=== PATIENT | female | born 1980 | race Caucasian/White ===

== ENCOUNTER 2025-05-29 00:10 | Emergency (ER) | payer OTHER, SELFPAY ==
[2025-05-29 00:12] VITALS: BP 130/90
[2025-05-29 00:28] VITALS: BP 134/100
[2025-05-29 00:38] VITALS: BP 114/85
--- NOTE | 2025-05-29 00:41 | ED.GENMED ---
History of Present Illness
<Idania Aguirre MD - Last Filed: 05/29/25 01:43>
General
Chief Complaint: Numbness
Time Seen by Provider: 05/29/25 00:24
History of Present Illness
History of Present Illness:
Patient is a 44-year-old woman with history of breast cancer currently on tamoxifen presenting to the emergency department with right sided numbness tingling to the face down to her leg. Patient's last known normal was 11 PM. Patient states that
she has sudden onset burning sensation to the entire right side. Her right arm then felt heavy. She felt slightly confused. She states that the heaviness is now gone and now just has paresthesias to the entire right side. She does note that last
week she did have bilateral blurry vision. This has not happened again. No history of strokes. No personal or family history of MS. Patient states she was on the phone with her sister when this happened. Do not have any word finding
difficulties. No dysarthria. 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 The only complaint was the paresthesias to the entire right side. However the heaviness did resolve by the time he evaluated her
Phy Exam
<Idania Aguirre MD - Last Filed: 05/29/25 01:43>
Physical Exam
Physical Exam:
GENERAL: in no acute distress
HEENT: normocephalic, extraocular movements intact, moist oral mucosa
NECK: normal inspection
RESPIRATORY: no respiratory distress, clear to auscultation bilaterally
CARDIOVASCULAR: regular rate and rhythm
ABDOMEN/: soft, non-distended, non-tender to palpation, no rebound or guarding
EXTREMITIES: non-tender, no edema/swelling
NEUROLOGIC: NIH 0, alert and oriented x 3, cranial nerves II-XII intact, right upper extremity strength 5/5, left upper extremity strength 5/5, right lower extremity strength 5/5, left lower extremity strength 5/5, normal sensation to light touch,
normal [id number] and vlmh-hj-hnea, gait not tested formally
SKIN: warm
Course
<Idania Aguirre MD - Last Filed: 05/29/25 01:43>
Orders/Labs/Results
Orders:
Orders
05/29/25 00:38
CT Head & Neck Angio W/wo IV Urgent
Reason For Exam: right sided parathesias, CTA + CTV
05/29/25 00:42
Complete Blood Count/With Diff Urgent
05/29/25 00:44
Electrocardiogram (*1) Urgent
Reason for Study: TIA/Stroke
EKG- Treatment ONCE
05/29/25 01:06
Comprehensive Metabolic Panel Urgent
Comment: REDRAW
Abnormal Lab Results
05/29/25 05/29/25
00:42 01:06
Abs Immat Gran (auto) 0.1 H 10^3/uL
(0-0.05)
Absolute Lymphs (auto) 3.7 H 10^3/uL
(1.2-3.4)
Absolute Monos (auto) 0.9 H 10^3/uL
(0.1-0.6)
BUN 18 H mg/dl
(7-17)
Glucose 108 H mg/dl
(70-99)
05/29/25 00:42
05/29/25 01:06
Vital Signs
Initial and Last Documented VS:
Initial Vital Signs
Temp Pulse Resp BP Pulse Ox
98 F 92 20 130/90 98
05/29/25 00:12 05/29/25 00:12 05/29/25 00:12 05/29/25 00:12 05/29/25 00:12
Last Documented Vital Signs
Temp Pulse Resp BP Pulse Ox
98 F 80 18 123/91 98
05/29/25 00:12 05/29/25 03:00 05/29/25 03:00 05/29/25 03:00 05/29/25 03:00
<Sharon Buitrago, DO - Last Filed: 05/29/25 03:36>
Orders/Labs/Results
Orders:
Orders
05/29/25 00:38
CT Head & Neck Angio W/wo IV Urgent
Reason For Exam: right sided parathesias, CTA + CTV
05/29/25 00:42
Complete Blood Count/With Diff Urgent
05/29/25 00:44
Electrocardiogram (*1) Urgent
Reason for Study: TIA/Stroke
EKG- Treatment ONCE
05/29/25 01:06
Comprehensive Metabolic Panel Urgent
Comment: REDRAW
Abnormal Lab Results
05/29/25 05/29/25
00:42 01:06
Abs Immat Gran (auto) 0.1 H 10^3/uL
(0-0.05)
Absolute Lymphs (auto) 3.7 H 10^3/uL
(1.2-3.4)
Absolute Monos (auto) 0.9 H 10^3/uL
(0.1-0.6)
BUN 18 H mg/dl
(7-17)
Glucose 108 H mg/dl
(70-99)
05/29/25 00:42
05/29/25 01:06
Vital Signs
Initial and Last Documented VS:
Initial Vital Signs
Temp Pulse Resp BP Pulse Ox
98 F 92 20 130/90 98
05/29/25 00:12 05/29/25 00:12 05/29/25 00:12 05/29/25 00:12 05/29/25 00:12
Last Documented Vital Signs
Temp Pulse Resp BP Pulse Ox
98 F 80 18 123/91 98
05/29/25 00:12 05/29/25 03:00 05/29/25 03:00 05/29/25 03:00 05/29/25 03:00
<Idania Aguirre MD - Last Filed: 05/29/25 01:43>
MDM/Problems Addressed
Differential Diagnosis Includes:
Patient is a 44-year-old woman with history of breast cancer presenting to the emergency department with right sided paresthesias as well as heaviness that has now resolved. Patient did have intermittent blurry vision last week. Differential is
broad but consists of TIA given the heaviness versus cerebral venous thrombosis versus malignancy. Will check blood work EKG and CT scans.
<Idania Aguirre MD - Last Filed: 05/29/25 01:43>
*Pulse Oximetry
SaO2: 99
Oxygen Mode of Delivery: Room air
<Sharon Buitrago DO - Last Filed: 05/29/25 03:36>
*Radiology
Radiology exam reviewed: radiology read reviewed
*Pulse Oximetry
Patient hypoxic: no
*Critical Care Note
Total Time (30-74mins, 75-104mins- exclusive of procedures): Not Applicable
<Idania Aguirre MD - Last Filed: 05/29/25 01:43>
Update Note
Update Note:
Blood work reassuring. On reevaluation patient states the paresthesias have resolved but she does have some heaviness to the right arm though she attributes it to her IV. No clear motor weakness. I did discuss that given her symptoms are
improving is concerning for TIA and would recommend admission. However patient unsure if she would like to be admitted. She will discuss with her . patient signed out to oncoming attending pending CT results and discussion with patient.
<Sharon Buitrago DO - Last Filed: 05/29/25 03:36>
Update Note
Update Note:
Blood work reassuring. On reevaluation patient states the paresthesias have resolved but she does have some heaviness to the right arm though she attributes it to her IV. No clear motor weakness. I did discuss that given her symptoms are
improving is concerning for TIA and would recommend admission. However patient unsure if she would like to be admitted. She will discuss with her . patient signed out to oncoming attending pending CT results and discussion with patient.
03:30
Patient remains asymptomatic.
Bright and alert, no focal neurodeficits.
CT of the head/CTA, CT venogram are all unremarkable.
Lengthy discussion. At this point unclear as to the cause of her symptoms. It is reassuring that there is no associated weakness as well as no appreciable sensory loss.
She had no accompanying headache thus complex migraine is less likely.
Patient remains eager to be discharged to home.
We did discuss rationale for hospitalization, continued close observation, neurologist evaluation.
She elects to be discharged to home and plans to promptly follow-up with her primary care physician and will touch base with her oncologist as well.
Strict return precautions discussed.
ED Attending Note
<Idania Aguirre MD - Last Filed: 05/29/25 01:43>
-
Portions of this chart may have been created with voice recognition software.� Occasional wrong word or��sound alike� substitutions may have occurred due to the inherent limitations of voice recognition software.
Discharge Plan
Departure
Patient Disposition: Home (Routine Discharge)
Date of Disposition: 05/29/25
Time of Disposition: 03:34
Patient with high blood pressure during this ER visit?: No
Discharge Problem:
Paresthesia of right upper and lower extremity
Instructions: Paresthesia (DC)
Referrals:
NONE,* [Family Provider, Internal Medicine]
Activity Restrictions/Additional Instructions:
Follow-up with your primary care physician this week for recheck.
I also recommend you touch base with your oncologist.
If episode of numbness recurs, prompt return to the ER for further evaluation.
Interventions
Interventions:
*Risk Screen - Suicide Last Done: 05/29/25 00:12
*General Assessment Last Done: 05/29/25 00:27
*Neglect/Abuse Screening Last Done: 05/29/25 00:12
*ED- Fall Risk Assessment Last Done: 05/29/25 00:27
*ED COVID-19 Vaccine History Last Done: 05/29/25 00:27
*ED Influenza Vaccine History Last Done: 05/29/25 00:27
ED- Neurological Assessment Last Done: 05/29/25 00:27
Discharge Date and Time
Print Language: MALAGASY
[2025-05-29 00:53] LABS: Hematocrit 37.0 % (37.0-47.0); Hemoglobin 12.4 g/dL (12.0-16.0); Mean Corp Hgb Conc. 33.5 g/dL (33.0-37.0); Mean Corpuscular Volume 85.1 fL (81.0-99.0); Nucleated Red Blood Cells % 0 %; Platelet Count 327 10^3/uL (130-400); Red Cell Dist. Width 13.0 % (11.5-14.5)
[2025-05-29 01:00] VITALS: BP 111/79
[2025-05-29 01:39] LABS: ALT (SGPT) 16 U/L (0-35); AST (SGOT) 23 U/L (14-36); Albumin 3.9 g/dl (3.5-5.0); Alkaline Phosphatase 80 U/L (38-126); Blood Urea Nitrogen 18 mg/dl (7-17); Calcium 8.8 mg/dl (8.4-10.2); Carbon Dioxide 27 mmol/L (22-30); Chloride 105 mmol/L (98-107); Glucose 108 mg/dl (70-99); Potassium 3.8 mmol/L (3.5-5.1); Sodium 137 mmol/L (135-145); Total Protein 6.7 g/dl (6.3-8.2); eGFR > 60.00
[2025-05-29 02:10] VITALS: BP 110/68
[2025-05-29 03:00] VITALS: BP 123/91
== END 2025-05-29 03:47 | disposition home or self-care (01) ==
LOC: EMR 00:10
PROVIDERS: EMERGENCY PHYSICIAN Student in an Organized Health Care Education/Training Program
DX: R20.2 Paresthesia of skin (principal); Z85.3 Personal history of malignant neoplasm of breast; Z79.810 Long term (current) use of selective estrogen receptor modulators (SERMs)
CPT/HCPCS: 99284; 70496; 70498; 80053; 85025; 93005; Q9967